=== PATIENT | male | born 1995 | race Caucasian/White ===

== ENCOUNTER 2017-06-15 07:24 | Day surgery (SDC) | payer OTHER ==
[~2017-06-15 07:24] MED LIST: Buffered Lidocaine 0.9% SYRIN* 5 ML/SYR SYRINGE INTRADERM ONE; Sodium Citrate/Citric Acid* 15 ML UDC PO ONE
[2017-06-15] MEDS ORDERED: ceFAZolin 2 GM PREMIX (*) 50 ML IVPB ONE (08:08)
[2017-06-15] MEDS ORDERED: Buffered Lidocaine 0.9% SYRIN* 5 ML/SYR SYRINGE ONE (08:13)
[2017-06-15] MEDS ORDERED: Sodium Citrate/Citric Acid* 15 ML UDC ONE (08:13)
[2017-06-15] MEDS ORDERED: Chloroprocaine 2%* 20 ML VIAL ONE (09:05)
[2017-06-15] MEDS ORDERED: Midazolam* 1 MG/ML 5 ML VIAL (5 MG) ONE ×2 (09:07→09:32)
[2017-06-15] MEDS ORDERED: Lidocaine 2% PF * 5 ML VIAL ONE (09:47)
[2017-06-15] MEDS ORDERED: Propofol* 10 MG/ML 20 ML BTL IV PUSH ONE (09:47)
[2017-06-15] MEDS ORDERED: fentaNYL* 50 MCG/ML 2 ML VIAL (100 MCG VIAL) IV PRN (10:05)
[2017-06-15] MEDS ORDERED: Ondansetron INJ* 2 MG/ML VIAL IV PRN (10:05)
[2017-06-15] MEDS ORDERED: Bupivacaine 0.25% SDV* 30 ML ONE (10:08)
[2017-06-15] MEDS ORDERED: Ketorolac INJ* 30 MG/ML 1 ML VIAL ONE (11:26)
[2017-06-15] MEDS ORDERED: oxyCODONE/Acetamin 5/325 MG* TAB ONE (11:26)
[2017-06-15] MEDS: Ketorolac INJ* 30 MG/ML 1 ML VIAL IV PRN ×2 (11:31→11:33)
[2017-06-15 11:46] VITALS: BP 143/92
--- NOTE | 2017-06-15 16:22 | OP ---
DATE OF OPERATION: 06/15/17 [facility] DATE OF : [birth year] SURGEON: Tiffany Merritt MD. TICKET SALES SUPERVISOR: YOHAN Infante. An assistant passenger locomotive engineer was needed for the entirety of the case to help with positioning, retraction, and closure, and was utilized throughout all portions of the case. ANESTHESIOLOGIST: Dr. Ruiz. ANESTHESIA: Spinal with local MAC. PRE-OP DIAGNOSIS: Left Achilles tendon rupture. POST-OP DIAGNOSIS: Left Achilles tendon rupture. OPERATIVE PROCEDURE: Left Achilles tendon repair. cpt 20271 COMPLICATIONS: None. ESTIMATED BLOOD LOSS: Minimal. TOURNIQUET TIME: At 250 mm was 50 minutes. 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 He felt immediate pop and pain. His national sales trainer called over and we were able to see him that week. We diagnosed him with an Achilles tendon rupture. We discussed the risks and benefits of surgical versus nonoperative treatment and he has elected to proceed with operative treatment. Risks included but were not limited to bleeding, infection, damage to nerves, vessels, surrounding structures, wound nonhealing, persistent pain, need for further surgery, scarring, persistent pain, incomplete relief of symptoms, retear, weakness, and risk of anesthesia. He has elected to proceed. DESCRIPTION OF PROCEDURE: The patient was greeted in the preoperative area by the attending surgeon and the correct extremity was marked and consent was confirmed. The patient was then brought back to the operating suite where he was placed in supine position on the operating table. He then was sat up and underwent spinal anesthesia, after which the patient was placed in the prone position and an unsterile tourniquet was placed high on the proximal left leg. The hair was then clipped at the surgical field. The leg was then prepped and draped in the usual sterile fashion, began with chlorhexidine soap and scrub and alcohol wipe and a final prep of ChloraPrep. After appropriate surgical pause indicating side, site and procedure, administration of antibiotics, the Esmarch was used to exsanguinate the limb. An incision centered medial to the Achilles was then made with a #15 blade. Soft tissues were carefully dissected. Flaps were maintained and kept for closure. The paratenon was identified, which was partially ruptured. There was a large blood clot at the level of where the tendon rupture was. The paratenon was incised for later closure. The two ends of the tendon were identified. There was blood clot that was abundant that was carefully removed using a rongeur and soft tissue devices. The FHL was identified and protected. The sural nerve was also identified and protected laterally. The wound was irrigated to remove any excess blood clot and both ends of the tissue were identified and debrided. Then, #2 Ortho Braid were then used to pass in a Krackow-type fashion. Two separate sutures for each end such that there were four strands from each end of the tendon. First distally, the two sutures were placed, then proximally. The sutures were then tied together to close and reapproximate the tendon. The knots were then buried and this was then oversewn with an 0 Vicryl to make an epitendinous suture. The wound was copiously irrigated. Whatever remaining paratenon was there was then closed with 0 Vicryl. The wound was irrigated again, and the subcutaneous tissues were closed in layers with 2-0 Vicryl and 3-0 nylon. The wound was then injected with 20 mL of 0.25% Marcaine plain. The soft dressings were applied. The tourniquet was deflated and a posterior slab splint in plantar flexion was then placed on the patient. He tolerated the procedure well. His toes were pink and well perfused. He was awoken from anesthesia and transferred to the PACU in stable condition. POSTOPERATIVE PLAN: He will be nonweightbearing. He will follow my Achilles tendon repair protocol that was given to his national sales trainer. He will be nonweightbearing. He will be discharged on pain medication as well as aspirin and a short course of antibiotics postoperatively. DVT prophylaxis was considered but deferred. He will be placed on aspirin as he has no personal or family history of DVT. I will see him back in 10 to 14 days. [id number]/[facility] #: [id number] JUAN
== END 2017-06-15 11:52 | disposition home or self-care (01) ==
LOC: OREAST 07:24
PROVIDERS: ATTEND Orthopaedic Surgery
DX: S86.012A Strain of left Achilles tendon, initial encounter (principal); X50.0XXA Overexertion from strenuous movement or load, initial encounter; Y93.61 Activity, american tackle football; Y92.321 Football field as the place of occurrence of the external cause; Z68.30 Body mass index [BMI] 30.0-30.9, adult
CPT/HCPCS: A9270-GY; J0690; J1885; J2250; J2400; J2704